=== PATIENT | female | born 1990 | race Caucasian/White ===

== ENCOUNTER → 2017-02-16 | Day surgery (SDC) | payer BC ==
[~2017-02-16] VITALS: Ht 162.6 cm; Wt 53.0 kg
[~2017-02-16] MED LIST: COSYNTROPIN INJ 1 MCG in SYRINGE 0 ML IV SCH; FEXO1TAB49 PO; HYDR200T5 PO; META1TAB22 PO; MULTTAB58 PO; ZNTT/150 PO
[2017-02-16 08:20] VITALS: BP 111/76; PULSE 97; TEMP 36.5; O2SAT 99; Ht 162.6 cm; Wt 53.0 kg
[2017-02-16 09:26] VITALS: BP 104/68; PULSE 82; TEMP 36.7; O2SAT 99
[2017-02-16 10:04] VITALS: BP 98/66; PULSE 85; TEMP 36.7; O2SAT 98
[2017-02-16 10:47] LABS: THYROID STIMULATING HORMONE 1.57 uIu/ml (0.300-4.500)
== END | disposition home or self-care (01) ==
LOC: C.MTU 08:06
PROVIDERS: ATTEND Internal Medicine Endocrinology, Diabetes & Metabolism
DX: R76.0 Raised antibody titer (principal); R53.83 Other fatigue; Z79.899 Other long term (current) drug therapy

== ENCOUNTER → 2017-12-24 | Outpatient (CLI) | payer OTHER ==
[~2017-12-24] MED LIST changes: -COSYNTROPIN INJ 1 MCG in SYRINGE 0 ML IV SCH; +RANI150T85 PO; -ZNTT/150 PO
--- NOTE | 2017-12-24 15:07 | DIAGNOSTIC IMAGING REPORT ---
ULTRASOUND OF THE PELVIS CLINICAL HISTORY: Irregular menses. COMPARISON STUDY: No priors. TECHNIQUE: Real-time, grayscale, and color flow sonography of the pelvis is performed transabdominally. Images are reviewed in the transverse and longitudinal planes. The patient declined the endovaginal examination. FINDINGS: Uterus: The uterus is normal in size and echotexture, measuring 7.5 x 3.7 x 4.8 cm. Endometrium: The endometrium is normal in appearance, and the endometrial stripe is normal in thickness measuring up to 1.1 cm. Ovaries: The ovaries are normal in size and morphology. The right ovary measures 3.2 x 4.4 x 2.6 cm and the left ovary measures 2.7 x 2.5 x 2.4 cm. Small follicles are noted bilaterally. Normal Doppler waveforms are shown within both ovaries. Pelvis: There is no free fluid in the cul-de-sac. No concerning adnexal lesion is seen. IMPRESSION: Unremarkable transabdominal sonographic assessment of the pelvis. Electronically signed by: Davis Stanford M.D. 12/24/2017 3:05 PM Dictated Date/Time: 12/24/2017 3:04 PM
== END | disposition home or self-care (01) ==
LOC: C.ULTR 14:07
PROVIDERS: ATTEND Nurse Practitioner Family
DX: N92.6 Irregular menstruation, unspecified (principal)